=== PATIENT | female | born 1950 | race Caucasian/White ===

== ENCOUNTER 2022-11-01 15:56 | Emergency (ER) | payer MEDICARE, OTHER, SELFPAY ==
[2022-11-01 16:08] VITALS: BP 131/73; PULSE 62; RESP 16; TEMP 36.7; O2SAT 95; BMI 27.2
--- NOTE | 2022-11-01 16:32 | ED_ITS ---
HPI - General Adult General Chief complaint: Skin/Abscess/Foreign Body Stated complaint: upper extremity injury Time Seen by Provider: 11/01/22 16:19 Source: patient Mode of arrival: walk-in History of Present Illness HPI narrative: patient is a 72-year-old female presents the emergency department for the evaluation of a skin tear to the right elbow. Patient states earlier today she hit her right proximal forearm/elbow on a shara door jam . She states bleeding from the area has been well-controlled. She is not on blood thinners. She states she was concerned that she may need a tetanus update. Last tetanus unknown. No other associated injuries or pain at this time. Related Data Allergies Allergy/AdvReac Type Severity Reaction Status Date / Time acetaminophen [From Vicodin] Allergy Severe Verified 11/01/22 16:12 cefaclor [From Ceclor] Allergy Severe Verified 11/01/22 16:12 cefuroxime [From Ceftin] Allergy Severe Verified 11/01/22 16:12 hydrocodone [From Vicodin] Allergy Severe Verified 11/01/22 16:12 Penicillins Allergy Severe Verified 11/01/22 16:12 troban Allergy Severe Uncoded 11/01/22 16:12 Review of Systems ROS Constitutional Denies: fever or chills Cardiovascular Denies: chest pain Respiratory Denies: shortness of breath or cough Gastrointestinal Denies: nausea or vomiting Musculoskeletal Denies: back pain Integumentary/Breast Denies: rash Exam Narrative Exam Narrative: Gen.: Awake, alert, in no distress Head: Normocephalic, atraumatic ENT: Moist mucous membranes Respiratory: No respiratory distress, lungs clear bilaterally Cardio: Regular rate and rhythm Gastrointestinal: Abdomen is soft, nondistended and nontender to palpation Extremities: Moves extremities equally Psych: Normal mood and affect Neuro: No focal neuro deficit Skin: Warm, dry, 2.5 cm C-shaped skin tear that is very superficial with no deep laceration or active bleeding noted to the right proximal forearm. Normal flexion and extension at the right elbow with no bony tenderness Constitutional Vital Signs, click to edit/add: Last Vital Signs Temp 98.0 F 11/01/22 16:08 Pulse 62 11/01/22 16:08 Resp 16 11/01/22 16:08 BP 131/73 H 11/01/22 16:08 Pulse Ox 95 11/01/22 16:08 O2 Del Method Room Air 11/01/22 16:08 Course Vital Signs Vital signs: Vital Signs Temperature 98.0 F 11/01/22 16:08 Pulse Rate 62 11/01/22 16:08 Respiratory Rate 16 11/01/22 16:08 Blood Pressure 131/73 H 11/01/22 16:08 Pulse Oximetry 95 11/01/22 16:08 Oxygen Delivery Method Room Air 11/01/22 16:08 Temperature 98.0 F 11/01/22 16:08 Pulse Rate 62 11/01/22 16:08 Respiratory Rate 16 11/01/22 16:08 Blood Pressure 131/73 H 11/01/22 16:08 Pulse Oximetry 95 11/01/22 16:08 Oxygen Delivery Method Room Air 11/01/22 16:08 Medical Decision Making MDM Narrative Medical decision making narrative: exam is consistent with a skin tear, no indication for suture repair at this time. Tetanus updated and the patient was placed in a dry sterile dressing with antibiotic ointment. Wound care encouraged at home. Return to the Emergency Room if symptoms change or worsen. She is neurovascularly intact pre-and post- dressing application. Medical Records Medical records reviewed: Yes I reviewed the patient's medical records Discharge Plan Discharge Chief Complaint: Skin/Abscess/Foreign Body Clinical Impression: Skin tear of right upper extremity Patient Disposition: Home, Self-Care Time of Disposition Decision: 16:31 Condition: Good Instructions: Skin Tear (ED) Stand Alone Forms: Portal Instructions Referrals: Physician,Non-Staff, MD [Primary Care Provider] - 1 week
[2022-11-01] MEDS: ADACEL DIPH,PERTUSS(ACELL),TET VAC/PF 0.5 ML ADULT SYRINGE IM (16:45)
[2022-11-01] MEDS: BACITRACIN 0.9 GM PACKET 1 PACKET TOPICAL (16:46)
== END 2022-11-01 16:49 | disposition home or self-care (01) ==
PROVIDERS: Emergency Provider Emergency Medicine
DX: S51.011A Laceration without foreign body of right elbow, initial encounter (principal); W22.8XXA Striking against or struck by other objects, initial encounter; Z23 Encounter for immunization
CPT/HCPCS: 90471; 90715; 99283

== ENCOUNTER 2023-09-27 18:02 | Emergency (ER) | payer MEDICARE, OTHER, SELFPAY ==
[2023-09-27 18:10] VITALS: BP 134/85; PULSE 55; TEMP 36.8; O2SAT 98; BMI 28.1
== END 2023-09-27 18:23 | disposition left against medical advice (07) ==
PROVIDERS: Emergency Provider Emergency Medicine
DX: Z53.21 Procedure and treatment not carried out due to patient leaving prior to being seen by health care provider (principal)